=== PATIENT | female | born 1955 | race African-American/Black ===

== ENCOUNTER 2016-10-19 17:15 | Emergency (ER) | payer SELFPAY ==
[~2016-10-19] VITALS: Ht 165.1 cm; Wt 93.8 kg
[~2016-10-19 17:15] MED LIST: ADVAIR 500/501 DISK IH; ASPIR-LOW81 M1 PO; ATROVENT 00.5 MG/2.5 IH; CALCIUM CITRAT250 MG PO; CRESTOR20 MG PO; FLEXERIL10 MG PO; GABAPENTIN100 MG PO; HYDROCHLOROTHIA25 MG PO; JANUVIA100 MG PO; LAMISIL250 MG PO; LISINOPRIL20 MG PO; METFORMIN HCL1000 M1 PO; METOPROLOL TART25 MG PO; PERCOCET 5/31 TABLET PO; PREDNISONE50 MG PO; PROTONIX40 MG PO; PROZAC20 MG PO; SENNA PLUS TAB1 EACH PO; SIMVASTATIN40 MG PO; THEOPHYLLINE A200 M1 PO; TRICOR48 MG PO; VITAMIN D-32000 UNIT PO; ZETIA10 MG PO; ZITHROMAX Z-PA250 MG PO; ZYRTEC10 M2 PO
[2016-10-19 17:52] LABS: HEMATOCRIT 45.3 % (36.0-46.0); MCH 31.1 PG (29.0-34.0); MCHC 33.6 G/DL (30.0-36.0); MCV 92.6 FL (83-99); MEAN PLAT.VOLUME 10.5 uM^3 (9.5-12.4); PLATELET COUNT 307 K/uL (156-360); RBC DIS.WIDTH-CV 12.4 % (11.8-14.6); RBC DIS.WIDTH-SD 42.8 % (39-53); RED BLOOD COUNT 4.89 M/uL (3.80-5.20); WHITE BLOOD COUNT 7.6 K/uL (4.1-10.2)
[2016-10-19 18:03] LABS: CHLORIDE 105 mEq/L (99-109); POTASSIUM 3.9 mEq/L (3.7-5.4); SODIUM 142 mEq/L (136-147)
[2016-10-19 18:04] LABS: GLUCOSE 119 mg/dL (70-99)
[2016-10-19 18:06] LABS: ANION GAP 12 MEQ/L (2-14)
[2016-10-19 18:08] LABS: GFR ESTIMATE (CALCULATED) > 59 mL/min/
[2016-10-19 18:09] LABS: UREA NITROGEN (BUN) 17 mg/dL (9-23)
[2016-10-19 18:13] LABS: ADD MIUA? YES; BILIRUBIN NEGATIVE; BLOOD SMALL; COLOR STRAW ((YELLOW)); GLUCOSE (STRIP) NEGATIVE; KETONES NEGATIVE; LEUKOCYTES SMALL; NITRITE NEGATIVE; PROTEIN (STRIP) NEGATIVE; SPECIFIC GRAVITY 1.009 (1.000-1.030); UROBILINOGEN 0.2 MG/DL (0.2-1.0)
[2016-10-19 18:17] LABS: BACTERIA NONE SEEN /HPF; EPITHELIAL CELLS RARE /HPF; MUCUS TRACE /LPF; UCUL ADDED? NO; WHITE BLOOD CELLS 0-5 /HPF (0-5)
[2016-10-19] MEDS ORDERED: ZOFRAN ODT4 MG PO (20:05)
[2016-10-19] MEDS ORDERED: INDOCIN50 MG PO (20:05)
[2016-10-19] MEDS ORDERED: ULTRAM50 MG PO (20:05)
[2016-10-19] MEDS ORDERED: UNABLE TO OBTAIN (20:26)
[2016-10-19 20:27] VITALS: BP 134/95
== END 2016-10-19 20:32 | disposition home or self-care (01) ==
LOC: EME 17:15
DX: N20.2 Calculus of kidney with calculus of ureter (principal); E11.9 Type 2 diabetes mellitus without complications; J44.9 Chronic obstructive pulmonary disease, unspecified; E78.5 Hyperlipidemia, unspecified; I10 Essential (primary) hypertension; K21.9 Gastro-esophageal reflux disease without esophagitis; F17.200 Nicotine dependence, unspecified, uncomplicated; R31.9 Hematuria, unspecified
CPT/HCPCS: 74176; 80048; 81003; 85027; 99281; 99284

== ENCOUNTER 2016-11-09 01:24 | Observation (INO) | payer SELFPAY ==
[~2016-11-09] VITALS: Ht 165.1 cm; Wt 93.5 kg
[~2016-11-09 01:24] MED LIST changes: +INDOCIN50 MG PO; +ULTRAM50 MG PO; +UNABLE TO OBTAIN; +ZOFRAN ODT4 MG PO
[2016-11-09 02:04] LABS: EOSINOPHIL (%) 1.6 % (0-5); EOSINOPHIL COUNT 0.1 K/uL (0-0.3); HEMATOCRIT 42.9 % (36.0-46.0); IMMATURE GRANULOCYTE (%) 0.4 % (0.0-0.7); INSTRUMENT ABS NEUTROPHIL CT 4.1 K/uL; LYMPHOCYTE COUNT 2.2 K/uL (1.0-2.8); MCH 31.5 PG (29.0-34.0); MCHC 33.6 G/DL (30.0-36.0); MCV 93.9 FL (83-99); MEAN PLAT.VOLUME 10.4 uM^3 (9.5-12.4); MONOCYTE (%) 8.1 % (3-12); MONOCYTE COUNT 0.6 K/uL (0-0.8); NEUTROPHIL (%) 58.1 % (45-76); NEUTROPHIL COUNT 4.1 K/uL (1.8-6.4); PLATELET COUNT 266 K/uL (156-360); RBC DIS.WIDTH-CV 12.6 % (11.8-14.6); RED BLOOD COUNT 4.57 M/uL (3.80-5.20)
[2016-11-09 02:08] LABS: ADD MIUA? YES; BILIRUBIN NEGATIVE; BLOOD LARGE; COLOR AMBER ((YELLOW)); GLUCOSE (STRIP) NEGATIVE; KETONES NEGATIVE; LEUKOCYTES SMALL; NITRITE NEGATIVE; PROTEIN (STRIP) 100; SPECIFIC GRAVITY 1.025 (1.000-1.030)
[2016-11-09 02:20] LABS: CHLORIDE 109 mEq/L (99-109); POTASSIUM 4.7 mEq/L (3.7-5.4); SODIUM 144 mEq/L (136-147)
[2016-11-09 02:21] LABS: GLUCOSE 108 mg/dL (70-99)
[2016-11-09 02:23] LABS: ANION GAP 10 MEQ/L (2-14)
[2016-11-09 02:25] LABS: GFR ESTIMATE (CALCULATED) > 59 mL/min/
[2016-11-09 02:26] LABS: UREA NITROGEN (BUN) 18 mg/dL (9-23)
[2016-11-09 02:30] LABS: BACTERIA RARE /HPF; CASTS NONE SEEN /LPF; EPITHELIAL CELLS RARE /HPF; MUCUS NONE SEEN /LPF; RED BLOOD CELLS TNTC /HPF (0-5); WHITE BLOOD CELLS 0-5 /HPF (0-5)
[2016-11-09 02:31] LABS: CALCIUM OXALATE CRYSTALS 1+ /HPF; CRYSTALS PRESENT
[2016-11-09] MEDS ORDERED: PROMETHAZINE HC25 M1 PO (04:21)
[2016-11-09] MEDS ORDERED: CELEBREX200 MG PO (04:23)
[2016-11-09] MEDS ORDERED: METFORMIN HCL500 MG PO (04:23)
[2016-11-09 05:52] VITALS: BP 133/76
[2016-11-09 09:50] VITALS: BP 123/73
[2016-11-09] MEDS ORDERED: LOPRESSOR50 MG PO (10:52)
[2016-11-09] MEDS ORDERED: SINGULAIR10 MG PO (10:56)
[2016-11-09] MEDS ORDERED: VITAMIN D2000 UNI1 PO (10:57)
[2016-11-09] MEDS ORDERED: DAILY VITAMIN1 EAC4 PO (10:58)
[2016-11-09] MEDS ORDERED: NASONEX17 GM BOTH NARES (11:13)
[2016-11-09 11:50] VITALS: BP 132/72
[2016-11-09 12:48] LABS: POINT-OF-CARE METER ID UU13113831
[2016-11-09 14:04] LABS: POINT-OF-CARE METER ID UU13113675; POINT-OF-CARE USER ID 515036437
[2016-11-09 15:01] VITALS: BP 157/82
[2016-11-09] MEDS ORDERED: PERCOCET 5/31 TABLET PO ×2 (16:29→16:31)
[2016-11-09] MEDS ORDERED: TAMSULOSIN HCL0.4 MG PO ×2 (16:29→16:31)
[2016-11-09] MEDS ORDERED: ZOFRAN4 MG PO (16:31)
[2016-11-09] MEDS ORDERED: CEFTIN250 MG PO (16:31)
== END 2016-11-09 17:30 | disposition home or self-care (01) ==
LOC: EME 01:24 → EDOF 03:53 → 5WEST 03:53 → EDOF 03:53 → 5WEST 05:38
PROVIDERS: Emergency Medicine; Family Medicine
PROC: 0T778DZ Dilation of Left Ureter with Intraluminal Device, Via Natural or Artificial Opening Endoscopic (ICD-10-PCS; principal; 2016-11-09)
DX: N13.2 Hydronephrosis with renal and ureteral calculous obstruction (principal); J44.9 Chronic obstructive pulmonary disease, unspecified; J45.909 Unspecified asthma, uncomplicated; F17.200 Nicotine dependence, unspecified, uncomplicated; E11.9 Type 2 diabetes mellitus without complications; I10 Essential (primary) hypertension; E78.5 Hyperlipidemia, unspecified; K21.9 Gastro-esophageal reflux disease without esophagitis; M19.90 Unspecified osteoarthritis, unspecified site
CPT/HCPCS: 74176; 80048; 81003; 82948; 85025; 99202; 99281; 99285; C1758; C1876; G0378; J0696; J1644; J1885; J2250; J2270; J2405; J3010; J7030; J7050

== ENCOUNTER 2016-11-22 01:32 | Emergency (ER) | payer SELFPAY ==
[~2016-11-22] VITALS: Ht 165.1 cm; Wt 93.8 kg
[~2016-11-22 01:32] MED LIST changes: +CEFTIN250 MG PO; +CELEBREX200 MG PO; +DAILY VITAMIN1 EAC4 PO; +LOPRESSOR50 MG PO; +METFORMIN HCL500 MG PO; +NASONEX17 GM BOTH NARES; +PROMETHAZINE HC25 M1 PO; +SINGULAIR10 MG PO; +TAMSULOSIN HCL0.4 MG PO; +VITAMIN D2000 UNI1 PO; +ZOFRAN4 MG PO
[2016-11-22 04:32] LABS: ADD MIUA? YES; BILIRUBIN NEGATIVE; BLOOD LARGE; COLOR YELLOW ((YELLOW)); GLUCOSE (STRIP) NEGATIVE; KETONES NEGATIVE; LEUKOCYTES LARGE; NITRITE NEGATIVE; PROTEIN (STRIP) 100; SPECIFIC GRAVITY 1.016 (1.000-1.030)
[2016-11-22 04:42] LABS: HEMATOCRIT 42.2 % (36.0-46.0); MCH 31.4 PG (29.0-34.0); MCHC 33.2 G/DL (30.0-36.0); MCV 94.6 FL (83-99); MEAN PLAT.VOLUME 10.6 uM^3 (9.5-12.4); PLATELET COUNT 264 K/uL (156-360); RBC DIS.WIDTH-CV 12.6 % (11.8-14.6); RED BLOOD COUNT 4.46 M/uL (3.80-5.20); WHITE BLOOD COUNT 7.3 K/uL (4.1-10.2)
[2016-11-22 04:51] LABS: BACTERIA NONE SEEN /HPF; EPITHELIAL CELLS 2+ /HPF; MUCUS NONE SEEN /LPF; RED BLOOD CELLS TNTC /HPF (0-5); UCUL ADDED? NO; WHITE BLOOD CELLS 20-30 /HPF (0-5)
[2016-11-22 04:56] LABS: CHLORIDE 107 mEq/L (99-109); POTASSIUM 3.8 mEq/L (3.7-5.4); SODIUM 143 mEq/L (136-147)
[2016-11-22 04:57] LABS: GLUCOSE 162 mg/dL (70-99)
[2016-11-22 04:59] LABS: ANION GAP 9 MEQ/L (2-14)
[2016-11-22 05:01] LABS: GFR ESTIMATE (CALCULATED) > 59 mL/min/
[2016-11-22 05:02] LABS: UREA NITROGEN (BUN) 19 mg/dL (9-23)
[2016-11-22] MEDS ORDERED: CIPRO500 MG PO (05:17)
[2016-11-22] MEDS ORDERED: FLOMAX0.4 MG PO (05:17)
[2016-11-22] MEDS ORDERED: PERCOCET 5/31 TABLET PO (05:17)
[2016-11-22 05:34] VITALS: BP 125/86
== END 2016-11-22 05:40 | disposition home or self-care (01) ==
LOC: EXP 01:32 → EME 01:32 → EXP 05:40
PROVIDERS: Emergency Medicine
DX: N30.91 Cystitis, unspecified with hematuria (principal); R10.32 Left lower quadrant pain; Z87.442 Personal history of urinary calculi; E11.9 Type 2 diabetes mellitus without complications; J44.9 Chronic obstructive pulmonary disease, unspecified; E78.5 Hyperlipidemia, unspecified; I10 Essential (primary) hypertension; K21.9 Gastro-esophageal reflux disease without esophagitis; Z79.82 Long term (current) use of aspirin; Z79.84 Long term (current) use of oral hypoglycemic drugs; Z79.899 Other long term (current) drug therapy; F17.200 Nicotine dependence, unspecified, uncomplicated
CPT/HCPCS: 74176; 80048; 81003; 85027; 99281; 99284

== ENCOUNTER → 2016-12-27 | Outpatient (CLI) | payer SELFPAY ==
[~2016-12-27] VITALS: Ht 165.1 cm; Wt 90.5 kg
[~2016-12-27] MED LIST changes: +CIPRO500 MG PO; +FLOMAX0.4 MG PO
[2016-12-27 09:09] LABS: POINT-OF-CARE METER ID UU14174212
[2016-12-27 11:40] LABS: POINT-OF-CARE METER ID UU13113819
== END | disposition home or self-care (01) ==
LOC: AMB 07:55
PROVIDERS: Urology
PROC: 0TF4XZZ Fragmentation in Left Kidney Pelvis, External Approach (ICD-10-PCS; principal; 2016-12-27)
DX: N20.2 Calculus of kidney with calculus of ureter (principal); N30.20 Other chronic cystitis without hematuria; E11.9 Type 2 diabetes mellitus without complications; Z79.84 Long term (current) use of oral hypoglycemic drugs; Z83.3 Family history of diabetes mellitus; Z82.49 Family history of ischemic heart disease and other diseases of the circulatory system; Z80.9 Family history of malignant neoplasm, unspecified; F17.210 Nicotine dependence, cigarettes, uncomplicated
CPT/HCPCS: 74000; 82948; 93005; J0692; J1885; J2250; J2405

== ENCOUNTER → 2017-01-26 | Outpatient (CLI) | payer SELFPAY | END | disposition home or self-care (01) | LOC: MRI 09:18 → RAD 11:00 → MRI 11:00 | DX: M51.26 Other intervertebral disc displacement, lumbar region (principal); M48.06 Spinal stenosis, lumbar region; R93.7 Abnormal findings on diagnostic imaging of other parts of musculoskeletal system; R20.9 Unspecified disturbances of skin sensation | CPT/HCPCS: 72148 ==